=== PATIENT | female | born 1975 | race Caucasian/White ===

== ENCOUNTER 2017-09-16 22:17 | Emergency (ER) | payer MEDICARE ==
[~2017-09-16] VITALS: Ht 165.1 cm; Wt 89.4 kg
[~2017-09-16 22:17] MED LIST: ATIVAN1 MG PO; AUGMENTIN 875-1 EACH PO; B-12 KIT1000 MCG/1 IJ; IBUPROFEN 800800 M1 PO; LIPITOR 20 MG T20 M1 PO; LOPRESSOR25 PO; NEURONTIN600 MG PO; NORCO 10-325 T1 EAC1 PO; SLEEPING PILL; TOPAMAX 100 MG100 MG PO; ZANAFLEX4 MG PO; ZANTAC 150MG T150 MG PO; ZOLOFT50 MG PO
[2017-09-16] MEDS ORDERED: ADDERALL XR 2020 MG (22:32)
[2017-09-16] MEDS ORDERED: TOPROL XL25 MG (22:32)
[2017-09-16] MEDS ORDERED: PROCTOFOAM-HC F10 G1 RECTAL (23:20)
[2017-09-16] MEDS ORDERED: TRAMADOL 50 MG50 MG PO (23:20)
[2017-09-16 23:35] VITALS: BP 107/66
== END 2017-09-16 23:39 | disposition home or self-care (01) ==
LOC: M.ERS 22:17
DX: K58.0 Irritable bowel syndrome with diarrhea (principal); R10.2 Pelvic and perineal pain; I10 Essential (primary) hypertension; Z90.49 Acquired absence of other specified parts of digestive tract; Z90.710 Acquired absence of both cervix and uterus; Z88.8 Allergy status to other drugs, medicaments and biological substances; Z88.6 Allergy status to analgesic agent; Z88.5 Allergy status to narcotic agent; Z91.040 Latex allergy status; Z77.22 Contact with and (suspected) exposure to environmental tobacco smoke (acute) (chronic)

== ENCOUNTER 2019-09-22 16:30 | Emergency (ER) | payer MEDICARE ==
[~2019-09-22] VITALS: Ht 165.1 cm; Wt 81.2 kg
[~2019-09-22 16:30] MED LIST changes: +ADDERALL XR 2020 MG; +PROCTOFOAM-HC F10 G1 RECTAL; +TOPROL XL25 MG; +TRAMADOL 50 MG50 MG PO
[2019-09-22] MEDS ORDERED: MELOXICAM7.5 MG PO (16:49)
[2019-09-22] MEDS ORDERED: TRAMADOL 50 MG50 MG PO ×2 (16:49→17:00)
[2019-09-22] MEDS ORDERED: OMEPRAZOLE 20 M20 M1 PO (16:49)
[2019-09-22] MEDS ORDERED: ZYRTEC10 M5 PO (16:49)
[2019-09-22] MEDS ORDERED: LIDOCAINE VISC100 ML SWISH&SPIT (17:00)
[2019-09-22] MEDS ORDERED: CLEOCIN HCL150 MG PO (17:00)
[2019-09-22 17:14] VITALS: BP 152/95
== END 2019-09-22 17:15 | disposition home or self-care (01) ==
LOC: M.ERS 16:30
DX: K04.7 Periapical abscess without sinus (principal); I10 Essential (primary) hypertension; Z90.49 Acquired absence of other specified parts of digestive tract; Z98.890 Other specified postprocedural states; Z90.710 Acquired absence of both cervix and uterus; Z88.6 Allergy status to analgesic agent; Z88.5 Allergy status to narcotic agent; Z91.040 Latex allergy status; Z77.22 Contact with and (suspected) exposure to environmental tobacco smoke (acute) (chronic)

== ENCOUNTER 2020-11-12 20:56 | Emergency (ER) | payer MEDICARE ==
[~2020-11-12] VITALS: Ht 165.1 cm; Wt 92.5 kg
[~2020-11-12 20:56] MED LIST changes: +CLEOCIN HCL150 MG PO; +LIDOCAINE VISC100 ML SWISH&SPIT; +MELOXICAM7.5 MG PO; +OMEPRAZOLE 20 M20 M1 PO; +ZYRTEC10 M5 PO
[2020-11-12] MEDS ORDERED: PROZAC40 MG PO (21:08)
[2020-11-12] MEDS ORDERED: ABILIFY 5 MG TAB5 M1 PO (21:08)
[2020-11-12] MEDS ORDERED: KLOR-CON M2020 MEQ PO (21:09)
[2020-11-12 21:20] LABS: URINE BILIRUBIN NEGATIVE (Negative); URINE BLOOD 3+ (Negative); URINE CLARITY CLEAR; URINE COLOR YELLOW; URINE GLUCOSE-RANDOM NEGATIVE (Negative); URINE KETONES NEGATIVE (Negative); URINE LEUKOCYTES-REFLEX NEGATIVE (Negative); URINE NITRITE-REFLEX NEGATIVE (Negative); URINE PROTEIN TRACE (Negative); URINE SPECIFIC GRAVITY 1.025 (1.005-1.030); URINE UROBILINOGEN 0.2 E.U./dl (0.2-1.0)
[2020-11-12 21:28] LABS: MUCUS 0-3 Light strn/LPF (None Seen); SQUAMOUS >10 Many /LPF (0-3)
[2020-11-12 21:29] LABS: BACTERIA-REFLEX 1-9 Few /HPF (None Seen); CASTS None Seen /LPF (None Seen); CRYSTALS None Seen /LPF (None Seen); URINE RBC >20 Many /HPF (0-2); URINE WBC-REFLEX 0-5 Rare /HPF (0-5)
[2020-11-12 22:07] LABS: ABSOLUTE BASOPHILS 0.1 thou/uL (0.0-0.2); ABSOLUTE EOSINOPHILS 0.3 thou/uL (0.0-0.7); ABSOLUTE MONOCYTES 0.6 thou/uL (0.0-1.2); ABSOLUTE NEUTROPHILS 4.1 thou/uL (1.6-8.1); BASOPHILS 0.8 %; EOSINOPHILS 3.4 %; HEMOGLOBIN 11.9 gm/dL (12.0-15.0); LYMPHOCYTES 43.6 %; MCH 31.5 pg (26.0-34.0); MCV 95.4 fL (80.0-100.0); MONOCYTES 6.6 %; MPV 9.4 fl. (7.2-11.1); NUCLEATED RBCS 0 /100WBC; PLATELET COUNT* 254 thou/uL (150-400); POLYS 45.6 %; RBC 3.77 mil/uL (4.20-5.00); RDW-CV 14.5 % (10.5-14.5); WBC 9.1 thou/uL (4.0-11.0)
[2020-11-12 22:14] LABS: CALCIUM 8.1 mg/dL (8.5-10.1); POTASSIUM 3.5 mmol/L (3.5-5.1)
[2020-11-12] MEDS ORDERED: ROXICODONE5 M2 PO (22:31)
[2020-11-12] MEDS ORDERED: ZOFRAN ODT4 MG PO (22:31)
[2020-11-12] MEDS ORDERED: FLOMAX0.4 MG PO (22:31)
[2020-11-12 23:03] VITALS: BP 127/64
== END 2020-11-12 23:03 | disposition home or self-care (01) ==
LOC: M.ERS 20:56
PROVIDERS: Emergency Medicine; Nurse Practitioner Family
DX: N20.1 Calculus of ureter (principal); I10 Essential (primary) hypertension; Z77.22 Contact with and (suspected) exposure to environmental tobacco smoke (acute) (chronic); Z88.6 Allergy status to analgesic agent; Z88.5 Allergy status to narcotic agent; Z91.040 Latex allergy status; Z90.49 Acquired absence of other specified parts of digestive tract; Z98.890 Other specified postprocedural states; Z98.51 Tubal ligation status; Z90.710 Acquired absence of both cervix and uterus; Z87.442 Personal history of urinary calculi

== ENCOUNTER 2021-02-20 16:31 | Inpatient (IN) | payer MEDICARE ==
[~2021-02-20] VITALS: Ht 165.1 cm; Wt 92.5 kg
[~2021-02-20 16:31] MED LIST changes: +ABILIFY 5 MG TAB5 M1 PO; +FLOMAX0.4 MG PO; +KLOR-CON M2020 MEQ PO; +PROZAC40 MG PO; +ROXICODONE5 M2 PO; +ZOFRAN ODT4 MG PO
[2021-02-20 17:53] VITALS: BP 137/89
[2021-02-20 18:55] LABS: ABSOLUTE BASOPHILS 0.1 thou/uL (0.0-0.2); ABSOLUTE EOSINOPHILS 0.3 thou/uL (0.0-0.7); ABSOLUTE LYMPHOCYTES 1.9 thou/uL (0.8-5.3); ABSOLUTE MONOCYTES 0.7 thou/uL (0.0-1.2); ABSOLUTE NEUTROPHILS 7.7 thou/uL (1.6-8.1); BASOPHILS 0.7 %; EOSINOPHILS 3.3 %; HEMATOCRIT 38.7 % (37.0-47.0); HEMOGLOBIN 13.4 gm/dL (12.0-15.0); LYMPHOCYTES 17.3 %; MCH 32.5 pg (26.0-34.0); MCHC 34.6 g/dL (28.0-37.0); MCV 93.9 fL (80.0-100.0); MONOCYTES 6.9 %; MPV 9.3 fl. (7.2-11.1); NUCLEATED RBCS 0 /100WBC; PLATELET COUNT* 274 thou/uL (150-400); POLYS 71.8 %; RBC 4.13 mil/uL (4.20-5.00); WBC 10.7 thou/uL (4.0-11.0)
[2021-02-20 19:07] LABS: CALCIUM 8.5 mg/dL (8.5-10.1); CREATININE 0.9 mg/dL (0.6-1.3)
[2021-02-20 19:08] LABS: POTASSIUM 2.7 mmol/L (3.5-5.1)
[2021-02-20 19:19] LABS: ALBUMIN 3.2 g/dL (3.4-5.0); MAGNESIUM 1.6 mg/dL (1.8-2.4); TOTAL BILIRUBIN 0.3 mg/dL (<0.1-1.0); TOTAL PROTEIN 7.9 g/dL (6.4-8.2)
[2021-02-20 21:51] LABS: PROTIME 10.8 Seconds (9.20-11.50)
[2021-02-21 03:18] VITALS: BP 135/75
[2021-02-21 05:06] LABS: ABSOLUTE EOSINOPHILS 0.3 thou/uL (0.0-0.7); ABSOLUTE LYMPHOCYTES 1.9 thou/uL (0.8-5.3); ABSOLUTE MONOCYTES 0.8 thou/uL (0.0-1.2); ABSOLUTE NEUTROPHILS 6.4 thou/uL (1.6-8.1); BASOPHILS 0.5 %; EOSINOPHILS 2.8 %; HEMATOCRIT 31.8 % (37.0-47.0); LYMPHOCYTES 19.8 %; MCH 32.3 pg (26.0-34.0); MCV 92.3 fL (80.0-100.0); MONOCYTES 8.6 %; MPV 9.6 fl. (7.2-11.1); NUCLEATED RBCS 0 /100WBC; PLATELET COUNT* 245 thou/uL (150-400); POLYS 68.3 %; RBC 3.44 mil/uL (4.20-5.00); RDW-CV 13.7 % (10.5-14.5); WBC 9.4 thou/uL (4.0-11.0)
[2021-02-21 05:23] LABS: HEMOGLOBIN 11.1 gm/dL (12.0-15.0)
[2021-02-21 05:28] LABS: ALBUMIN 2.7 g/dL (3.4-5.0); CALCIUM 7.6 mg/dL (8.5-10.1); CREATININE 0.6 mg/dL (0.6-1.3); TOTAL BILIRUBIN 0.3 mg/dL (<0.1-1.0); TOTAL PROTEIN 6.5 g/dL (6.4-8.2)
[2021-02-21 05:29] LABS: POTASSIUM 2.7 mmol/L (3.5-5.1)
[2021-02-21 06:10] VITALS: BP 132/74
[2021-02-21] MEDS ORDERED: XARELTO1 EACH PO (09:11)
[2021-02-21 10:10] VITALS: BP 126/76
--- NOTE | 2021-02-21 13:50 | EKG ---
[place] [address] ELECTROCARDIOGRAM REPORT Name: CHEEMAADDIE Room: [place] [address] ADM IN [facility]#: [id number] Admission: 02/20/21 Attend Phys: Holli Chapman Discharge: Date of : 77 Date of Service: 02/20/211909 Report #: [id number] THIS REPORT FOR: //name// [facility] ED Test Date: 2021-02-20 Test Time: 19:10:13 Pat Name: ADDIE CHEEMA Department: Room: [facility] Gender: F Fur Mixer: [facility] : 1975 Requested By: Chanelle Berg Order Number: [id number] MD: Eric Ly Measurements Intervals [place] Rate: 80 P: 24 OK: 158 QRS: -11 QRSD: 97 T: 4 QT: 380 QTc: 439 Interpretive Statements Sinus rhythm Left ventricular hypertrophy Borderline T abnormalities, anterior leads No previous ECG available for comparison Electronically Signed On 02-21-2021 13:50:19 CDT by Eric Ly [email or web address] <ELECTRONICALLY SIGNED> By: Eric Ly MD, FAC 02/21/21 1350 09 09 Eric Ly MD, [facility] /EPI
[2021-02-21] MEDS ORDERED: AZITHROMYCIN500 MG PO (14:16)
[2021-02-21 14:38] LABS: CALCIUM 7.8 mg/dL (8.5-10.1); CREATININE 0.6 mg/dL (0.6-1.3); MAGNESIUM 1.6 mg/dL (1.8-2.4); POTASSIUM 3.3 mmol/L (3.5-5.1)
[2021-02-21] MEDS ORDERED: MAGNESIUM400 M1 PO (15:02)
[2021-02-21] MEDS ORDERED: POTASSIUM20 PO (15:02)
[2021-02-21 15:49] VITALS: BP 141/84
[2021-02-21 16:14] VITALS: BP 141/84
[2021-02-21 16:31] VITALS: BP 141/84
== END 2021-02-21 16:31 | disposition home or self-care (01) | DRG 175 ==
LOC: M.ERS 16:31 → M.TBA-ER 21:36
PROVIDERS: Family Medicine; Nurse Practitioner Family; ADMIT Internal Medicine; ATTEND Internal Medicine
DX: I26.99 Other pulmonary embolism without acute cor pulmonale (principal); J18.9 Pneumonia, unspecified organism; K91.873 Postprocedural seroma of a digestive system organ or structure following other procedure; E87.6 Hypokalemia; I10 Essential (primary) hypertension; D32.9 Benign neoplasm of meninges, unspecified; E83.42 Hypomagnesemia; E66.9 Obesity, unspecified; N20.0 Calculus of kidney; Y83.8 Other surgical procedures as the cause of abnormal reaction of the patient, or of later complication, without mention of misadventure at the time of the procedure; Y82.8 Other medical devices associated with adverse incidents; Z20.822 Contact with and (suspected) exposure to COVID-19; Z90.49 Acquired absence of other specified parts of digestive tract; Z98.891 History of uterine scar from previous surgery; Z90.710 Acquired absence of both cervix and uterus; Z79.899 Other long term (current) drug therapy; Z88.8 Allergy status to other drugs, medicaments and biological substances; Z88.5 Allergy status to narcotic agent; Z91.040 Latex allergy status; Z68.33 Body mass index [BMI] 33.0-33.9, adult; Y92.89 Other specified places as the place of occurrence of the external cause; F17.210 Nicotine dependence, cigarettes, uncomplicated

== ENCOUNTER 2021-08-31 10:30 | Emergency (ER) | payer OTHER ==
[~2021-08-31] VITALS: Ht 165.1 cm; Wt 100.2 kg
[~2021-08-31 10:30] MED LIST changes: +AZITHROMYCIN500 MG PO; +MAGNESIUM400 M1 PO; +POTASSIUM20 PO; +XARELTO1 EACH PO
[2021-08-31] MEDS ORDERED: TESSALON PERLE100 MG PO (11:44)
[2021-08-31 11:50] VITALS: BP 146/98
== END 2021-08-31 11:53 | disposition home or self-care (01) ==
LOC: M.ERS 10:30
DX: J06.9 Acute upper respiratory infection, unspecified (principal); I10 Essential (primary) hypertension; Z98.890 Other specified postprocedural states; Z90.49 Acquired absence of other specified parts of digestive tract; Z98.51 Tubal ligation status; Z90.710 Acquired absence of both cervix and uterus; Z87.442 Personal history of urinary calculi; Z79.891 Long term (current) use of opiate analgesic; Z79.899 Other long term (current) drug therapy; Z88.8 Allergy status to other drugs, medicaments and biological substances; Z88.5 Allergy status to narcotic agent; Z91.040 Latex allergy status; Z88.6 Allergy status to analgesic agent; Z77.22 Contact with and (suspected) exposure to environmental tobacco smoke (acute) (chronic)